=== PATIENT | male | born 1940 | race Caucasian/White ===

== ENCOUNTER → 2017-01-16 | Outpatient (CLI) | payer OTHER ==
--- NOTE | 2017-01-16 10:45 | DIAGNOSTIC IMAGING REPORT ---
CHEST 2 VIEWS ROUTINE CLINICAL HISTORY: COUGH COMPARISON STUDY: No previous studies for comparison. FINDINGS: There are postsurgical changes of a midline sternotomy. There is aortic tortuosity. There is no focal pulmonary consolidation. There is no failure. There are no pleural effusions. Linear opacities at both lung bases, likely represent scar/atelectatic change.[ IMPRESSION: No active disease in the chest. Electronically signed by: Hal Salas M.D. 01/16/2017 10:44 AM Dictated Date/Time: 01/16/2017 10:44 AM
== END | disposition home or self-care (01) ==
LOC: C.RAD1850 10:25
PROVIDERS: ATTEND Family Medicine
DX: R05 Cough (principal)

== ENCOUNTER 2019-04-23 11:24 | Inpatient (IN) ==
[2019-04-23 12:07] LABS: Basophils # (auto) 0.03 K/uL (0-0.2); Basophils % (auto) 0.3 %; Eosinophils # (auto) 0.09 K/uL (0-0.5); Hematocrit (blood only) 49.1 % (42-52); Hemoglobin 16.2 g/dL (14.0-18.0); Immature Granulocytes # (auto) 0.04 K/uL (0.00-0.02); Immature Granulocytes % (auto) 0.4 %; Lymphocytes # (auto) 0.89 K/uL (1.2-3.4); Lymphocytes % (auto) 9.5 %; Mean Corpuscular Hemoglobin 29.5 pg (25-34); Mean Corpuscular Volume 89.4 fL (80-100); Mean Platelet Volume 9.5 fL (7.4-10.4); Monocytes # (auto) 0.76 K/uL (0.11-0.59); Monocytes % (auto) 8.1 %; Neutrophils % (auto) 80.7 %; Platelet Count 146 K/uL (130-400); RDW Coefficient of Variation 15.5 % (11.5-14.5); RDW Standard Deviation 51.1 fL (36.4-46.3); Red Blood Count 5.49 M/uL (4.7-6.1); White Blood Count 9.41 K/uL (4.8-10.8)
[2019-04-23 12:25] LABS: Alanine Aminotransferase 25 U/L (12-78); Albumin Level 3.9 gm/dl (3.4-5.0); Aspartate Aminotransferase 13 U/L (15-37); BUN Creatinine Ratio 17.8 (10-20); Blood Urea Nitrogen 25 mg/dl (7-18); Calcium 8.6 mg/dl (8.5-10.1); Carbon Dioxide 28 mmol/L (21-32); Chloride 110 mmol/L (98-107); Creatinine Clr Calc Pharmacy 47.3 ml/min; Est GFR (African American) 55.5; Est GFR (Non-African American) 47.9; Glucose 109 mg/dl (70-99); Potassium 4.5 mmol/L (3.5-5.1); Sodium 143 mmol/L (136-145)
[2019-04-23 12:35] LABS: Albumin Globulin Ratio 1.3 (0.9-2); Alkaline Phosphatase 71 U/L (45-117); Bilirubin,Total 1.1 mg/dl (0.2-1); Total Protein 6.9 gm/dl (6.4-8.2); Troponin I < 0.015 ng/ml (0-0.045)
[2019-04-23] MEDS ORDERED: SODIUM CHLORIDE 0.9% 1000ML 500 ML IV ONE (12:35)
--- NOTE | 2019-04-23 12:35 | XRay Report ---
XR chest 1V portable CLINICAL HISTORY: weakness COMPARISON STUDY: 01/16/2017 FINDINGS: There are postsurgical changes of midline sternotomy. The heart is at the upper limits of n ormal in size. There is no failure. There is no focal pulmonary consolidation. There are no pleural e ffusions. There is minor left basilar atelectatic change. A rounded opacity at the right lung base, l ikely represents a nipple shadow.[ IMPRESSION: 1. 8 mm rounded opacity at the right lung base, likely representing a nipple shadow 2. No acute findings. No evidence of failure. No evidence of focal pulmonary consolidation Electronically signed by: Hal Salas M.D. 04/23/2019 12:34 PM
--- NOTE | 2019-04-23 13:40 | Magnetic Resonance Report ---
MR brain wo con CLINICAL HISTORY: 79 years-old Male presenting with off balance, poss stroke. TECHNIQUE: Multisequence, multiplanar MR imaging of the brain was performed without the use of intrav enous contrast. IV contrast: None. COMPARISON: None. FINDINGS: Localizer images: Unremarkable. Bone marrow signal intensity within the calvarium within normal limits. Normal midline sagittal structures. Ventricles and sulci normal in size. No mass effect or midline sh ift. Date diffusion hyperintensity at the junction of the midbrain and pura with associated T2/FLAIR hyperintensity. No other restricted diffusion or hemorrhage. Periventricular and subcortical white ma tter T2/FLAIR hyperintensity, nonspecific but likely indicative of chronic small vessel ischemic [place] ge. No extra-axial fluid collection. T2 skull base flow voids preserved. Bilateral [place] lenses are abse nt. IMPRESSION: 1. Questionable evolving acute or subacute infarct or underlying lesion in the midline at the juncti on of the midbrain and pura. A short-term follow-up MR brain with intravenous contrast is recommended . 2. Chronic small vessel ischemic change. Electronically signed by: Mekhi Shankar M.D. 04/23/2019 1:38 PM
[2019-04-23] MEDS ORDERED: OPTIRAY 320 125ml IV PRN (14:14)
--- NOTE | 2019-04-23 14:34 | CT Scan Report ---
CT angio head wo/w CT DOSE: 2010.12 mGycm CLINICAL HISTORY: stroke TECHNIQUE: CT angiography of the brain was performed in a dynamic helical fashion during intravenous administration of 120 cc of Optiray 320. MIP imaging was performed. A dose lowering technique was ut ilized adhering to the principles of ALARA. COMPARISON STUDY: MRI of the brain dated 04/23/2019 FINDINGS: Noncontrast images reveal no evidence of acute or subacute infarction. There is no evidence of hydrocephalus. There is no evidence of midline shift. There is no evidence of acute hemorrhage. T here are involutional changes, most pronounced in the frontal regions. There is subtle white matter h ypodensities likely on a small vessel basis. CT angiography reveals no major intracranial branch occlusions. There is no evidence for aneurysm. Th ere is mild intracranial atherosclerotic change, most pronounced within the right posterior cerebral artery. No high-grade stenotic lesions are visualized. There are atheromatous ossifications present w ithin the cavernous and supraclinoid carotid. Cavernous sinus gas, is likely iatrogenic. There is no evidence for dural venous sinus thrombosis IMPRESSION: 1. Mild intracranial atherosclerotic disease without evidence of high-grade stenosis 2. No evidence of aneurysm 3. No evidence for dural venous sinus thrombosis Electronically signed by: Hal Salas M.D. 04/23/2019 2:33 PM
--- NOTE | 2019-04-23 14:35 | CT Scan Report ---
CT angio neck with con CLINICAL HISTORY: 79 years-old Male presenting with stroke, dizziness since 3:00 AM this morning. TECHNIQUE: Multidetector CT angiography of the neck was performed after the administration of intrave nous contrast. 3-D volumetric and/or maximum intensity projection (MIP) images were subsequently amanda nstructed for review. IV contrast: 120 mL of Optiray 320. One or more dose lowering techniques were u sed consistent with the principles of ALARA (as low as reasonably achievable), including automatic ex posure control, mA or kV adjustment to individual patient size, and/or use of iterative reconstructio n. Stenosis measurements were based on NASCET-like criteria (distal lumen diameter as the denominator for stenosis measurement). COMPARISON: None. CT DOSE (mGy.cm): The estimated cumulative dose is 2009.. 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 Aortic arch: Atherosclerosis of the three-vessel aortic arch with patent origins of the branch vessel s. Innominate artery: Patent. Right subclavian artery: Patent. Right common carotid artery: Patent. Right internal and external carotid arteries: Right carotid bifurcation patent. Right internal and ex ternal carotid arteries widely patent. Left common carotid artery: Patent. Left internal and external carotid arteries: Left carotid bifurcation patent. Left internal and exter nal carotid arteries widely patent. Left subclavian artery: Patent. Vertebral arteries: Codominant vertebral arteries. Origins and courses of the bilateral vertebral art eries patent. Other: Atherosclerosis of the cavernous segments of the internal carotid arteries. Soft tissues of th e neck normal allowing for the phase of contrast. Degenerative changes of the cervical spine. Median sternotomy wires noted. Lung apices clear. IMPRESSION: 1. No evidence of dissection, focal vessel occlusion, or significant stenosis of the cervical arteri es. Electronically signed by: Mekhi Shankar M.D. 04/23/2019 2:34 PM
--- NOTE | 2019-04-23 14:50 | Emergency Department Note ---
Entered by Idalmis Villeda acting as a scribe for César Judd MD History of Present Illness General Chief complaint: Dizziness Stated complaint: DIZZINESS Time Seen by Provider: 04/23/19 12:21 Source: patient History of Present Illness Provider complaint: dizziness Onset (ago): hour(s) 8 Pain Consistency: + other (episode) Maximum Pain Intensity: 0 Quality: + other (dizziness) Relieved By: + rest Exacerbated By: + movement Associated symptoms: + denies other symptoms (pain) and + other (bilateral leg weakness, continual symptoms hours later); no nausea/vomiting The patient is a 79 year old male who presents to the ED with complaints of an episode of dizziness that started 8 hours ago. The patient states that he went to [facility] prior to arrival and they referred him to the ED. The patient states that he woke up this morning at 0300 to use the bathroom which is when he first noticed dizziness and bilateral leg weakness. The patient states that he went back to bed after this occurrence and woke up again later in the morning with the same symptoms. The patient denies pain, nausea and vomiting. The patient notes that his symptoms are exacerbated by movement of his head and relieved with rest. Home Medications Home Medications Medication Instructions Recorded Confirmed Type aspirin 81 mg PO QPM 08/28/18 04/23/19 History atenolol 25 mg PO QAM 08/28/18 04/23/19 History atorvastatin 40 mg PO PM 08/28/18 04/23/19 History folic acid 1 mg PO QAM 08/28/18 04/23/19 History losartan 25 mg PO QAM 08/28/18 04/23/19 History Allergies Allergy/AdvReac Type Severity Reaction Status Date / Time No Known Allergies Allergy Verified 09/17/18 07:39 Past Med/Surg History Medical History Bifascicular block CHRONIC CAD (coronary artery disease) CABG X 3 (1997): SVG-RCA, RADIAL GRAFT-OM2, BRIGGS-LAD Hearing deficit Hyperlipidemia Hypertension Osteoarthritis Polycythemia vera PHLEBOTOMY EVERY 4 WEEKS; DR PHILLIPS (HEMATOLOGY) MONITORING Surgical History History of appendectomy History of bowel resection R/T POLYPS History of cardiac cath 2008=NO STENTS History of cataract surgery History of cholecystectomy History of colonoscopy History of coronary artery bypass graft CABG X 3 (1997) History of esophagogastroduodenoscopy (EGD) History of herniorrhaphy Social History Preferred Language: Estonian Communication Ability: Effective 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 and A total of 10 systems reviewed and were otherwise negative Physical Exam Vital Signs Vital Signs - 24 hr 04/23/19 11:26 04/23/19 12:04 04/23/19 13:55 Temperature 36.4 C L Temperature Source Oral Sepsis Recent Fever Within 48 Hours No Sepsis Action Taken by Nursing No Action Required Pulse Rate 57 L Pulse Rate [Apical] 51 L 52 L Pulse Rhythm Regular Pulse Rhythm [Apical] Regular Pulse Strength Normal Pulse Strength [Apical] Respiratory Rate 20 18 18 Respiratory Effort / Characteristics Non-Labored Spontaneous Non-Labored Spontaneous Respiratory Depth Normal Normal Respiratory Pattern Regular Regular Blood Pressure 176/101 H Blood Pressure [Right Arm] 146/99 H 169/95 H Blood Pressure Mean 126 Blood Pressure Mean [Right Arm] 114 119 Blood Pressure Position Sitting Blood Pressure Position [Right Arm] Pulse Oximetry 94 96 94 Oxygen Delivery Method Room Air Room Air Room Air 04/23/19 16:00 Temperature Temperature Source Sepsis Recent Fever Within 48 Hours Sepsis Action Taken by Nursing Pulse Rate Pulse Rate [Apical] 52 L Pulse Rhythm Pulse Rhythm [Apical] Regular Pulse Strength Pulse Strength [Apical] Normal Respiratory Rate 18 Respiratory Effort / Characteristics Non-Labored Spontaneous Respiratory Depth Normal Respiratory Pattern Regular Blood Pressure Blood Pressure [Right Arm] 169/84 H Blood Pressure Mean Blood Pressure Mean [Right Arm] 112 Blood Pressure Position Blood Pressure Position [Right Arm] Sitting Pulse Oximetry 96 Oxygen Delivery Method Room Air GENERAL: Patient is in no acute distress. HEENT: No nystagmus. No acute trauma, normocephalic atraumatic, mucous membranes moist, no nasal congestion, no scleral icterus. NECK: No stridor, no adenopathy, no meningismus, trachea is midline. LUNGS: Clear to auscultation bilaterally, no wheeze, no rhonchi, breath sounds equal. HEART: Without murmurs gallops or rubs, regular rate and rhythm. ABDOMEN: Soft, nontender, bowel sounds positive, no hernias, no peritonitis. EXTREMITIES: No cyanosis or edema, full range of motion of all the joints without pain or difficulty, no signs for acute trauma. NEUROLOGIC: No cerebellar deficit, no pronator drift, no speech slur, no facial droop. Oriented x 3, no acute motor or sensory deficits, no focal weakness. SKIN: No rash, no jaundice, no diaphoresis. Course 1226: Past medical records reviewed. The patient was evaluated in room B6. A complete history and physical exam was performed. 1353: I discussed the patient's case with Dr. Jony Peters. He suggests that we get a CTA of the patient's head and neck. 1356: I updated the patient on the plan and he verbally agrees and understands. 1400: I discussed the patient's case with Dr. Barahona [facility], Hospitalist. She will evaluate the patient for further management. Consultations Consultation #1: I discussed the patient's case with Dr. Jony Peters. He suggests that we get a CTA of the patient's head and neck. Time: 13:53 Consultation #2: I discussed the patient's case with Dr. Barahona [facility], Hospitalist. She will evaluate the patient for further management. Time: 14:00 Administered Medications Discontinued Medications Sodium Chloride (Nss 1000ml) 500 mls @ 999 mls/hr IV .Q31M ONE Stop: 04/23/19 13:05 Last Infusion: 04/23/19 13:50 Dose: 0 mls/hr Documented by: [id number] Admin: 04/23/19 12:45 Dose: 999 mls/hr Documented by: [id number] Ioversol (Optiray 320 125ml) 120 ml IV ONCE PRN PRN Reason: Interaction Checking Stop: 04/27/19 14:13 Last Admin: 04/23/19 14:14 Dose: 120 ml Documented by: [id number] Medical Decision Making Differential Diagnosis Differentials include stroke, vertigo, electrolyte imbalance, anemia, dehydrating, UTI, intracranial bleeding. Medical Records Attestation: I reviewed the patient's medical records. Home Medications Current Medication List: was personally reviewed by me Laboratory Data Attestation: I reviewed the patient's lab results. Result diagrams: 04/23/19 11:56 04/23/19 11:56 Lab Results 04/23/19 04/23/19 04/23/19 Range/Units 11:56 11:56 11:56 WBC 9.41 (4.8-10.8) K/uL RBC 5.49 (4.7-6.1) M/uL Hgb 16.2 (14.0-18.0) g/dL Hct 49.1 (42-52) % MCV 89.4 (80-100) fL MCH 29.5 (25-34) pg MCHC 33.0 (32-36) g/dL RDW Std Deviation 51.1 H (36.4-46.3) fL RDW Coeff of Jeff 15.5 H (11.5-14.5) % Plt Count 146 (130-400) K/uL MPV 9.5 (7.4-10.4) fL Immature Gran % (Auto) 0.4 % Neut % (Auto) 80.7 % Lymph % (Auto) 9.5 % Dickens % (Auto) 8.1 % Eos % (Auto) 1.0 % Baso % (Auto) 0.3 % Immature Gran # (Auto) 0.04 H (0.00-0.02) K/uL Neut # (Auto) 7.60 H (1.4-6.5) K/uL Lymph # (Auto) 0.89 L (1.2-3.4) K/uL Dickens # (Auto) 0.76 H (0.11-0.59) K/uL Eos # (Auto) 0.09 (0-0.5) K/uL Baso # (Auto) 0.03 (0-0.2) K/uL Sodium 143 (136-145) mmol/L Potassium 4.5 (3.5-5.1) mmol/L Chloride 110 H (98-107) mmol/L Carbon Dioxide 28 (21-32) mmol/L Anion Gap 5.0 (3-11) BUN 25 H (7-18) mg/dl Creatinine 1.39 (0.6-1.4) mg/dl Est Cr Clr Drug Dosing 47.3 ml/min Est GFR ( Amer) 55.5 Est GFR (Non-Af Amer) 47.9 BUN/Creatinine Ratio 17.8 (10-20) Glucose 109 H (70-99) mg/dl Calcium 8.6 (8.5-10.1) mg/dl Magnesium 2.3 (1.8-2.4) mg/dl Total Bilirubin 1.1 H (0.2-1) mg/dl AST 13 L (15-37) U/L ALT 25 (12-78) U/L Alkaline Phosphatase 71 (45-117) U/L Troponin I < 0.015 (0-0.045) ng/ml Total Protein 6.9 (6.4-8.2) gm/dl Albumin 3.9 (3.4-5.0) gm/dl Globulin 3.0 (2.5-4.0) gm/dl Albumin/Globulin Ratio 1.3 (0.9-2) TSH 2.170 (0.300-4.500) uIu/ml Imaging Data Radiologist's Impression: Radiology results as stated below per my review and the radiologist's interpretation: XR chest 1V portable CLINICAL HISTORY: weakness COMPARISON STUDY: 01/16/2017 FINDINGS: There are postsurgical changes of midline sternotomy. The heart is at the upper limits of normal in size. There is no failure. There is no focal pulmonary consolidation. There are no pleural effusions. There is minor left basilar atelectatic change. A rounded opacity at the right lung base, likely represents a nipple shadow.[ IMPRESSION: 1. 8 mm rounded opacity at the right lung base, likely representing a nipple shadow 2. No acute findings. No evidence of failure. No evidence of focal pulmonary consolidation Electronically signed by: Hal Salas M.D. 04/23/2019 12:34 PM MR brain wo con CLINICAL HISTORY: 79 years-old Male presenting with off balance, poss stroke. TECHNIQUE: Multisequence, multiplanar MR imaging of the brain was performed without the use of intravenous contrast. IV contrast: None. COMPARISON: None. FINDINGS: Localizer images: Unremarkable. Bone marrow signal intensity within the calvarium within normal limits. Normal midline sagittal structures. Ventricles and sulci normal in size. No mass effect or midline shift. Date diffusion hyperintensity at the junction of the midbrain and pura with associated T2/FLAIR hyperintensity. No other restricted diffusion or hemorrhage. Periventricular and subcortical white matter T2/FLAIR hyperintensity, nonspecific but likely indicative of chronic small vessel ischemic change. No extra-axial fluid collection. T2 skull base flow voids preserved. Bilateral [place] lenses are absent. IMPRESSION: 1. Questionable evolving acute or subacute infarct or underlying lesion in the midline at the junction of the midbrain and pura. A short-term follow-up MR brain with intravenous contrast is recommended. 2. Chronic small vessel ischemic change. Electronically signed by: Mekhi Shankar M.D. 04/23/2019 1:[address] angio head wo/w CT DOSE: 2010.12 mGycm CLINICAL HISTORY: stroke TECHNIQUE: CT angiography of the brain was performed in a dynamic helical fashion during intravenous administration of 120 cc of Optiray 320. MIP imaging was performed. A dose lowering technique was utilized adhering to the principles of ALARA. COMPARISON STUDY: MRI of the brain dated 04/23/2019 FINDINGS: Noncontrast images reveal no evidence of acute or subacute infarction. There is no evidence of hydrocephalus. There is no evidence of midline shift. There is no evidence of acute hemorrhage. There are involutional changes, most pronounced in the frontal regions. There is subtle white matter hypodensities likely on a small vessel basis. CT angiography reveals no major intracranial branch occlusions. There is no evidence for aneurysm. There is mild intracranial atherosclerotic change, most pronounced within the right posterior cerebral artery. No high-grade stenotic lesions are visualized. There are atheromatous ossifications present within the cavernous and supraclinoid carotid. Cavernous sinus gas, is likely iatrogenic. There is no evidence for dural venous sinus thrombosis IMPRESSION: 1. Mild intracranial atherosclerotic disease without evidence of high-grade stenosis 2. No evidence of aneurysm 3. No evidence for dural venous sinus thrombosis Electronically signed by: Hal Salas M.D. 04/23/2019 2:[address] angio neck with con CLINICAL HISTORY: 79 years-old Male presenting with stroke, dizziness since 3:00 AM this morning. TECHNIQUE: Multidetector CT angiography of the neck was performed after the administration of intravenous contrast. 3-D volumetric and/or maximum intensity projection (MIP) images were subsequently reconstructed for review. IV contrast: 120 mL of Optiray 320. One or more dose lowering techniques were used consistent with the principles of ALARA (as low as reasonably achievable), including automatic exposure control, mA or kV adjustment to individual patient size, and/or use of iterative reconstruction. Stenosis measurements were based on NASCET-like criteria (distal lumen diameter as the denominator for stenosis measurement). COMPARISON: None. CT DOSE (mGy.cm): The estimated cumulative dose is 2009.12. 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 Aortic arch: Atherosclerosis of the three-vessel aortic arch with patent origins of the branch vessels. Innominate artery: Patent. Right subclavian artery: Patent. Right common carotid artery: Patent. Right internal and external carotid arteries: Right carotid bifurcation patent. Right internal and external carotid arteries widely patent. Left common carotid artery: Patent. Left internal and external carotid arteries: Left carotid bifurcation patent. Left internal and external carotid arteries widely patent. Left subclavian artery: Patent. Vertebral arteries: Codominant vertebral arteries. Origins and courses of the bilateral vertebral arteries patent. Other: Atherosclerosis of the cavernous segments of the internal carotid arteries. Soft tissues of the neck normal allowing for the phase of contrast. Degenerative changes of the cervical spine. Median sternotomy wires noted. Lung apices clear. IMPRESSION: 1. No evidence of dissection, focal vessel occlusion, or significant stenosis of the cervical arteries. Electronically signed by: Mekhi Shankar M.D. 04/23/2019 2:34 PM ECG Data Attestation: I personally reviewed and interpreted this ECG as follows: Indication: weakness Rate (beats per minute): 55 Rhythm: sinus bradycardia Findings: + 1st degree AV block and + RBBB; no ST elevation and no acute ischemic change Comparison ECG Date: from (09/08/2018) Change: no significant change Blood Pressure Blood Pressure Findings: Elevated blood pressure Blood Pressure Disposition: further management by hospitalist [facility] There is no leukocytosis or concerning anemia. No significant electrolyte abnormality or kidney failure. No concerning liver enzyme elevation. The patient appeared to be in a euthyroid state. EKG showed a sinus bradycardia, no acute ischemia. Cardiac enzyme testing x1 was not consistent with acute cardiac injury. Chest film did not show any pneumonia or pneumothorax. Brain MRI did suggest a subacute infarct. CT angios of the head and neck did not show any thrombus or significant stenosis. On exam, the patient did not have any focal neurologic findings. No speech slur. The patient received IV saline, he has been resting comfortably. The patient presents around 9 or so hours after noticing some difficulty with h is balance. He was not a candidate for TPA. He was well out of the TPA window. His complaints were minimal and there was nothing on examination to suggest a large stroke deficit. Work-up here does suggest a small CVA as the cause for his symptoms. I did speak with neurology. I spoke with the patient and case management. Further work-up in the hospital is warranted. As the patient is already on aspirin, adjustments may need to be made with his antiplatelet therapy. A cardiology consult may be warranted. The on-call hospitalist was consulted. Impression & Plan Acute CVA (cerebrovascular accident), Dizziness, Ambulatory dysfunction Critical Care Time Critical Care Time: Yes Total Critical Care Time: 34 I have personally spent 34 minutes of critical care time in the direct management of this patient. This includes bedside care, interpretation of diagnostic studies, and testing, discussion with consultants, patient, and [facility] ly members, and other required patient management activities. This 34 minutes is in excess of all separately billable procedures. Discharge Plan Visit Data *Final* Discharge Date/Time: 04/23/19 17:21 Chief Complaint: Dizziness Stated Complaint: DIZZINESS ED Provider: César Judd Discharge Problem: Acute CVA (cerebrovascular accident), Dizziness, Ambulatory dysfunction Patient Disposition: Admitted As Inpatient Discharge Instructions Interventions: ED Discharge Assessment Last Done: 04/23/19 17:21 The scribe's documentation has been prepared under my direction and personally reviewed by me in its entirety. I confirm that the note above accurately reflects all work, treatment, procedures, and medical decision making performed by me.
--- NOTE | 2019-04-23 15:41 | History & Physical Report ---
Date of Service April 23, 2019 Assessment & Plan (1) Acute CVA (cerebrovascular accident): Admit to PCU on telemetry Vital signs every 4 hours Given aspirin 324 Continue aspirin 81 Continue atorvastatin 40 mg p.o. every morning for now and check lipid panels in the morning A1c pending, TSH, BMP Follow CBC, CMP TTE pending US to rule out DVT DVT lower extremities Cardiology consult for left anterior fascicular block. Replenish electrolytes as needed DVT prophylaxis Lovenox 40 mg SC daily Continue neurology consult/appreciate recommendations Full code Present on Admission?: Yes (2) Dizziness: Will start physical therapy and Occupational Therapy for gait and balance, weightbearing bilaterally. Present on Admission?: Yes (3) Ambulatory dysfunction: See above Present on Admission?: Yes History of Present Illness Chief Complaint: Dizziness Primary Care Provider: Rola Mosquera Patient is a 79 years old male with past medical history of hypertension who presents to the emergency department with a complaint of episode of dizziness that started approximately 3 AM last night patient said that he went to [place] prior to arrival here and he was referred to the emergency department. Patient said that he woke up this morning at 3 AM went to the bathroom at which he noticed dizziness and bilateral leg weakness. The patient states that he went went to bed after this documents and woke up again later this morning with the same symptoms. Patient denies fever chills chest pain shortness of breath abdominal pain frequency urgency melena hematemesis hematuria dysuria syncope or near syncope patient. Patient reports unsteadiness on his feet. Reviewed: Shows sinus bradycardia with first-degree AV block, right bundle branch block, left anterior fascicular block, bifascicular block septal infarct when compared to September 08, 2018 no severe significant change was found. Labs reviewed: White blood cell 9.41, hemoglobin 16.2, hematocrit 49.1, platelets 146, sodium 143, potassium 4.5, chloride 110, BUN 25, creatinine 1.39, GFR 47.9, total bili 1.1, AST 13, ALT 25, alkaline phosphatase 71, troponin 0 0.015, total protein 6.9 TSH 2.17. CTA of the head and neck: Mild intracranial atherosclerotic disease without evidence of high-grade stenosis, no evidence of aneurysm, no evidence of dural sinus thrombosis. There is mild in intracranial atherosclerotic change most pronounced within the right posterior cerebral artery. No evidence of dissection, focal vessel occlusion, significant stenosis of the cervical arteries. Brain MRI shows questionable evolving acute to subacute infarct or underlying lesion in the midline at the junction of the midbrain and pura. Chronic small vessel ischemic changes. The case was discussed with neurology Dr. Márquez and he recommended full work-up for stroke continue aspirin check lipids continue echocardiogram, would consult cardiology for further EKG left anterior fascicular block, and DVT to rule out to be from nose thrombosis. Decision was made to admit patient to PCU on telemetry. Patient is outside of the window for administration of TPA. Allergies Allergy/AdvReac Type Severity Reaction Status Date / Time No Known Allergies Allergy Verified 09/17/18 07:39 Home Medications Home Medications Medication Instructions Recorded Confirmed Type aspirin 81 mg PO QPM 08/28/18 04/23/19 History atenolol 25 mg PO QAM 08/28/18 04/23/19 History atorvastatin 40 mg PO PM 08/28/18 04/23/19 History folic acid 1 mg PO QAM 08/28/18 04/23/19 History losartan 25 mg PO QAM 08/28/18 04/23/19 History Past Med/Surg History Medical History Bifascicular block CHRONIC CAD (coronary artery disease) CABG X 3 (1997): SVG-RCA, RADIAL GRAFT-OM2, BRIGGS-LAD Hearing deficit Hyperlipidemia Hypertension Osteoarthritis Polycythemia vera PHLEBOTOMY EVERY 4 WEEKS; DR PHILLIPS (HEMATOLOGY) MONITORING Surgical History History of appendectomy History of bowel resection R/T POLYPS History of cardiac cath 2007=NO STENTS History of cataract surgery History of cholecystectomy History of colonoscopy History of coronary artery bypass graft CABG X 3 (1997) History of esophagogastroduodenoscopy (EGD) History of herniorrhaphy Social History Preferred Language: Wolof Communication Ability: Effective 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 Beliefs That Will Affect Care: None Current Living Situation: Spouse Feels Safe at Home: Yes Smoking Status: Former smoker Second Hand Exposure: No ; Hx Alcohol Use: Yes Alcohol type: beer, wine and hard liquor Hx Substance Use: No Review of Systems Review of Systems: All systems reviewed & are unremarkable except as noted in HPI & below Physical Exam Constitutional: WD/WN, vitals as above well developed Eyes: PERRL, conjunctivae normal, anicteric sclerae ENMT: external ear and nose normal, oropharynx normal Neck: trachea midline, no thyromegaly Respiratory: normal respiratory effort, lungs clear to auscultation Cardiovascular: RRR, no murmur, no edema Chest (Breasts): normal inspection/palpation of breasts Gastrointestinal (Abdomen): normal bowel sounds, soft, nontender, no hepatosplenomegaly Musculoskeletal: no cyanosis or clubbing, extremities motor strength 5/5 Skin: no rashes, warm and dry Neurologic: patellar DTR's 2+ bilat, sensation intact No cerebellar deficits, no pronator drift, no speech slurred no facial drop, oriented x3 no acute motor or sensory deficit, no focal weakness. Psychiatric: A+Ox3, euthymic affect Lymphatic: no cervical or axillary lymphadenopathy Results & Data Vital Signs (Past 12 Hours) Vital Signs Temp Pulse Pulse Resp BP BP Pulse Ox 04/23/19 13:55 52 L 18 169/95 H 94 04/23/19 12:04 51 L 18 146/99 H 96 04/23/19 11:26 36.4 C L 57 L 20 176/101 H 94 Code Status & VTE Plan Code Status Full code VTE Prophylaxis Plan VTE Prophylaxis will be ordered: Yes PG Care Time/CCT Total # of Minutes Spent Total Time Spent with Patient: Total time spent is greater than 50% in coordination of care (as documented) at patient's floor/unit and/or counseling patient:
[2019-04-23] MEDS ORDERED: ACETAMINOPHEN 325 MG TAB PO PRN (17:50)
[2019-04-23] MEDS ORDERED: SODIUM CHLORIDE 0.9% 1000ML 1,000 ML IV SCH (17:50)
[2019-04-23] MEDS ORDERED: ONDANSETRON INJ 2 MG/ML 2 ML VIAL IV PRN (17:50)
[2019-04-23] MEDS ORDERED: ZOLPIDEM TARTRATE 5 MG TAB PO PRN (17:50)
[2019-04-23] MEDS ORDERED: POLYETHYLENE (MIRALAX) 17 GM PACK PO PRN (17:50)
[2019-04-23] MEDS ORDERED: ALUMINUM/MAGNESIUM SUSP 30 ML UDC PO PRN (17:50)
[2019-04-23] MEDS ORDERED: MAGNESIUM HYDROXIDE SUSP 30 ML UDC PO PRN (17:50)
--- NOTE | 2019-04-23 20:31 | Ultrasound Report ---
ULTRASOUND BILATERAL LOWER EXTREMITY VENOUS CLINICAL HISTORY: Dyspnea. Clinical concern for deep venous thrombosis. COMPARISON STUDY: No priors. TECHNIQUE: Real-time, grayscale, and color Doppler sonography of the deep veins of the right and left lower extremity was performed from the inguinal crease to the calf. Compression and augmentation wer e utilized. FINDINGS: There is no sonographic evidence of deep venous thrombosis identified in the right or left lower extremity. The common femoral, superficial femoral, and popliteal veins are patent and normally compressible bilaterally. The greater saphenous vein and the profunda femoris vein at the junction w ith the common femoral vein are clear in both legs. There is trace chronic appearing thrombus within the left peroneal vein. The remaining visualized calf veins are patent bilaterally. IMPRESSION: 1. There is no sonographic evidence of acute deep venous thrombosis identified in the right or left l ower extremity. 2. There is trace chronic appearing thrombus within the left peroneal vein. Electronically signed by: César Baldwin M.D. 04/23/2019 8:29 PM
[2019-04-23] MEDS: HEPARIN SOD 5,000 UNIT/0.5 ML VIAL SQ SCH (20:38)
[2019-04-23] MEDS: CLOPIDOGREL BISULFATE 75 MG TAB PO SCH (20:38)
[2019-04-23] MEDS ORDERED: ASPIRIN 81 MG ECTAB PO SCH (21:00)
[2019-04-23] MEDS ORDERED: ATORVASTATIN 40 MG TAB PO SCH (21:00)
[2019-04-23] MEDS ORDERED: HydrALAZINE 10 MG TAB PO PRN (23:05)
[2019-04-24 00:41] LABS: Appearance Urine Clear (Clear); Bilirubin Urine Negative (Negative); Blood Urine Negative (Negative); Color Urine Yellow; Glucose Urine UA Negative (Negative); Ketones Urine Negative (Negative); Leukocyte Esterase Urine Negative (Negative); Nitrite Urine Negative (Negative); Protein Urine Negative (Negative); Urobilinogen Urine Negative (Negative); pH Urine 6.5 (4.5-7.5)
[2019-04-24 06:49] LABS: Basophils % (auto) 1.2 %; Eosinophils % (auto) 3.5 %; Hematocrit (blood only) 45.4 % (42-52); Hemoglobin 15.1 g/dL (14.0-18.0); Immature Granulocytes # (auto) 0.04 K/uL (0.00-0.02); Immature Granulocytes % (auto) 0.5 %; Lymphocytes # (auto) 1.18 K/uL (1.2-3.4); Lymphocytes % (auto) 13.9 %; Mean Corpuscular Hemoglobin 29.3 pg (25-34); Mean Corpuscular Hgb Conc 33.3 g/dL (32-36); Mean Corpuscular Volume 88.2 fL (80-100); Monocytes # (auto) 1.11 K/uL (0.11-0.59); Monocytes % (auto) 13.1 %; Neutrophils # (auto) 5.75 K/uL (1.4-6.5); Neutrophils % (auto) 67.8 %; Platelet Count 152 K/uL (130-400); RDW Coefficient of Variation 15.4 % (11.5-14.5); RDW Standard Deviation 50.3 fL (36.4-46.3); Red Blood Count 5.15 M/uL (4.7-6.1); White Blood Count 8.48 K/uL (4.8-10.8)
[2019-04-24 07:22] LABS: Estimated Average Glucose 126 mg/dl
[2019-04-24 07:27] LABS: Albumin Level 3.3 gm/dl (3.4-5.0); BUN Creatinine Ratio 18.2 (10-20); Calcium 8.2 mg/dl (8.5-10.1); Creatinine Clr Calc Pharmacy 53.9 ml/min; Potassium 3.8 mmol/L (3.5-5.1)
[2019-04-24 07:38] LABS: Albumin Globulin Ratio 1.2 (0.9-2); Bilirubin,Total 1.6 mg/dl (0.2-1); Globulin 2.7 gm/dl (2.5-4.0); Thyroid Stimulating Hormone 2.57 uIu/ml (0.300-4.500)
--- NOTE | 2019-04-24 08:14 | Neurology Consultation ---
Date of Consultation April 24, 2019 Assessment & Plan (1) Dizziness: (2) Hypertension: (3) Abnormal MRI: (4) Chronic cerebral ischemia: Patient had the acute onset early April 23 of dizziness/wooziness (not lightheadedness or vertigo). This is improved today but he still has some nonspecific wooziness and unsteadiness of gait with sitting up/walking. Otherwise, he has no focal neurologic deficits, meningeal signs, or encephalopathy. MRI of the brain shows a nonspecific lesion of the rather large size in the mid brain/pura junction. After review of this film and discussion with Dr. Salas, we are not convinced that this represents stroke. Therefore, I do not believe the patient had a stroke. The MRI lesion may be metabolic changes from hypertension or or may be an old nonspecific lesion. Finally, it may just be an artifact. I believe the patient's symptoms of wooziness/dizziness are related to his hypertension which is quite significant. Although his blood pressure is a little better today is still elevated. He does have risk factors for stroke including his longstanding history of hypertension and dyslipidemia as well as cigarette smoking, although he quit age 35. He has mild old small vessel ischemic disease on MRI. Recommendations: 1. I am not certain this patient needs to have Plavix added to his 81 mg aspirin tablet. He could just remain on aspirin alone. Alternatively, he could be switched to Plavix but he does not need to be on both. 2. Control blood pressure keeping mean arterial pressure around 100 3. Keep atorvastatin the same for now. Fasting lipid profile is pending. 4. Glucose is fairly well controlled. 5. Increase activity as able. 6. The patient will probably need a repeat MRI of the brain with without contrast, attention to the brainstem, in 2 or 3 days. This could be done as an outpatient. Overall, I spent a total of 70 minutes with this case including review of records, review of MRI films, direct evaluation the patient at bedside, and discussion of the case with the patient at bedside, RN at bedside, Dr. Guallpa, and Dr. Birmingham, including differential diagnosis and treatment options. History of Present Illness Reason for Consultation: Patient is a 79-year-old, who I was asked to see at the request of Dr. Warner, for neurologic consultation regarding stroke versus other. Requesting Physician: Dr. Warner Attending Physician: Dav Warner MD History of Present Illness This patient has a history of coronary artery disease status post 3 vessel bypass graft procedure in 1997. Since that time, he has been treated for high blood pressure and dyslipidemia. He believes that his blood pressure has been very well controlled recently. He has never had a history of stroke and does not have diabetes. He quit cigarette smoking at age 35. Patient has been on 81 mg aspirin tablet daily as well for many years. On April 22 patient had a normal day feeling fine. He went to bed in the evening as usual without illness or issues. Patient woke at 0300 on April 23 to go to the bathroom (as usual). When he sat up and stood up he felt woozy. He call this a dizziness but did not have vertigo. He did not have lightheadedness like he was going to faint. He did not fall but he did have a little trouble ambulating. He denied headache, confusion, speech problems, weakness in the legs, numbness or tingling in the legs, incontinence, spine pain or other issues. After going to the bathroom he went back to bed. He woke next at 0600 to go to the bathroom again. He had the same exact woozy feelings as before and went back to bed. He finally awoke around [id number] with the same symptoms. He got up, had some juice, got dressed, and they went to [facility] because he could not get a hold of his primary care physician. He arrived there around 1000 and they sent him to the emergency room after evaluation. Patient arrived at the emergency room at 1126 on April 23 with a blood pressure of 176/101, pulse 57 and regular, respiratory rate 20 and regular, temperature 36.4, and O2 saturation 94%. His neurologic examination was described as normal with no focal neurologic findings. He had no confusion. CBC was unremarkable. Chem profile was unremarkable although the glucose was 109. TSH was normal at 2.1 and urinalysis was unremarkable. Chest x-ray was unremarkable and ultrasound of the legs showed no DVT. CT angiography of the head and neck showed some plaque but no significant stenoses or other vessel anomalies. MRI of the brain showed an unusual shadow on diffusion imaging and on FLAIR at the pura midbrain junction of uncertain significance. He also has some mild nonspecific old small vessel ischemic disease of the white matter diffusely. There is mild atrophy in general. I reviewed these films and discussed the case with Dr. Salas and we agree that this is likely not a real stroke and is a shadow of uncertain significance, possibly metabolic from blood pressure versus other. This morning, the patient feels improved with less wooziness with sitting and standing and he has no new symptoms. Blood pressure this morning is 166/89. Hemoglobin A1c was 6.0. Allergies Allergy/AdvReac Type Severity Reaction Status Date / Time No Known Allergies Allergy Verified 09/17/18 07:39 Home Medications Home Medications Medication Instructions Recorded Confirmed Type aspirin 81 mg PO QPM 08/28/18 04/23/19 History atenolol 25 mg PO QAM 08/28/18 04/23/19 History atorvastatin 40 mg PO PM 08/28/18 04/23/19 History folic acid 1 mg PO QAM 08/28/18 04/23/19 History losartan 25 mg PO QAM 08/28/18 04/23/19 History Patient History Medical History Bifascicular block CHRONIC CAD (coronary artery disease) CABG X 3 (1997): SVG-RCA, RADIAL GRAFT-OM2, BRIGGS-LAD Hearing deficit Hyperlipidemia Hypertension Osteoarthritis Polycythemia vera PHLEBOTOMY EVERY 4 WEEKS; DR PHILLIPS (HEMATOLOGY) MONITORING Surgical History History of appendectomy History of bowel resection R/T POLYPS History of cardiac cath 2007=NO STENTS History of cataract surgery History of cholecystectomy History of colonoscopy History of coronary artery bypass graft CABG X 3 (1997) History of esophagogastroduodenoscopy (EGD) History of herniorrhaphy Family History Mother , Mother age 61 of lung cancer. 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 Hx Substance Use: No Review of Systems Constitutional: + fatigue; no fever and no weakness Eyes: no diplopia, no eye pain and no worsening vision Ear, Nose, Mouth, Throat: + dizziness; no ear pain, no tinnitus, no hearing loss, no snoring, no hoarseness and no dysphagia Respiratory: no cough and no dyspnea Cardiovascular: no chest pain, no palpitations and no lightheadedness Gastrointestinal: no abdominal pain, no nausea and no vomiting Genitourinary: no dysuria and no urinary incontinence Musculoskeletal: no back pain, no neck pain, no radicular pain, no joint pain and no myalgia Integumentary: no rash and no lesions Neurologic: + unsteadiness and + dizziness; no gait abnormality, no localized weakness, no generalized weakness, no tingling, no numbness, no tremor(s), no abnormal movements, no headache(s), no abnormal speech, no confusion and no memory loss Psychiatric: no depression, no irritability, no anxiety, no difficulty concentrating, no confusion and no hallucinations Endocrine: + fatigue; no flushing Hematologic / Lymphatic: no easy bleeding and no easy bruising Allergy / Immunological: no urticaria and no problem reported Results & Data Vital Signs (Past 12 Hours) Vital Signs Temp Pulse Resp BP Pulse Ox 04/24/19 07:07 36.4 C L 63 19 166/89 H 91 04/24/19 03:32 36.7 C 62 19 144/87 H 91 04/23/19 23:50 61 19 152/90 H 92 04/23/19 20:26 36.9 C 63 20 160/100 H 92 Diagnostic Findings MR brain wo con CLINICAL HISTORY: 79 years-old Male presenting with off balance, poss stroke. TECHNIQUE: Multisequence, multiplanar MR imaging of the brain was performed without the use of intravenous contrast. IV contrast: None. COMPARISON: None. FINDINGS: Localizer images: Unremarkable. Bone marrow signal intensity within the calvarium within normal limits. Normal midline sagittal structures. Ventricles and sulci normal in size. No mass effect or midline shift. Date diffusion hyperintensity at the junction of the midbrain and pura with associated T2/FLAIR hyperintensity. No other restricted diffusion or hemorrhage. Periventricular and subcortical white matter T2/FLAIR hyperintensity, nonspecific but likely indicative of chronic small vessel ischemic change. No extra-axial fluid collection. T2 skull base flow voids preserved. Bilateral eek lenses are absent. IMPRESSION: 1. Questionable evolving acute or subacute infarct or underlying lesion in the midline at the junction of the midbrain and pura. A short-term follow-up MR brain with intravenous contrast is recommended. 2. Chronic small vessel ischemic change. Electronically signed by: Mekhi Shankar M.D. 04/23/2019 1:38 PM PG Care Time/CCT Total # of Minutes Spent Total Time Spent with Patient: 70 min Total time spent is greater than 50% in coordination of care (as documented) at patient's floor/unit and/or counseling patient:
[2019-04-24] MEDS: CLOPIDOGREL BISULFATE 75 MG TAB PO SCH (08:34)
[2019-04-24] MEDS: HEPARIN SOD 5,000 UNIT/0.5 ML VIAL SQ SCH (08:35)
[2019-04-24] MEDS ORDERED: FOLIC ACID 1 MG TAB PO SCH (09:00)
[2019-04-24] MEDS ORDERED: LOSARTAN POTASSIUM 25 MG TAB PO SCH (09:00)
[2019-04-24] MEDS ORDERED: LOSARTAN POTASSIUM 50 MG TAB PO SCH (09:00)
[2019-04-24] MEDS ORDERED: ATENOLOL 25 MG TABLET PO SCH (09:00)
--- NOTE | 2019-04-24 16:46 | Discharge Summary ---
Date of Service April 24, 2019 Admission HPI Per Admitting Provider Patient is a 79 years old male with past medical history of hypertension who presents to the emergency department with a complaint of episode of dizziness that started approximately 3 AM last night patient said that [facility] and he was referred to the emergency department. Patient said that he woke up this morning at 3 AM went to the bathroom at which he noticed dizziness and bilateral leg weakness. The patient states that he went went to bed after this documents and woke up again later this morning with the same symptoms. Patient denies fever chills chest pain shortness of breath abdominal pain frequency urgency melena hematemesis hematuria dysuria syncope or near syncope patient. Patient reports unsteadiness on his feet. Reviewed: Shows sinus bradycardia with first-degree AV block, right bundle branch block, left anterior fascicular block, bifascicular block septal infarct when compared to September 08, 2018 no severe significant change was found. Labs reviewed: White blood cell 9.41, hemoglobin 16.2, hematocrit 49.1, platelets 146, sodium 143, potassium 4.5, chloride 110, BUN 25, creatinine 1.39, GFR 47.9, total bili 1.1, AST 13, ALT 25, alkaline phosphatase 71, troponin 0 0.015, total protein 6.9 TSH 2.17. CTA of the head and neck: Mild intracranial atherosclerotic disease without evidence of high-grade stenosis, no evidence of aneurysm, no evidence of dural sinus thrombosis. There is mild in intracranial atherosclerotic change most pronounced within the right posterior cerebral artery. No evidence of dissection, focal vessel occlusion, significant stenosis of the cervical arteries. Brain MRI shows questionable evolving acute to subacute infarct or underlying lesion in the midline at the junction of the midbrain and pura. Chronic small vessel ischemic changes. The case was discussed with neurology Dr. Márquez and he recommended full work-up for stroke continue aspirin check lipids continue echocardiogram, would consult cardiology for further EKG left anterior fascicular block, and DVT to rule out to be from nose thrombosis. Decision was made to admit patient to PCU on telemetry. Patient is outside of the window for administration of TPA. Principal Diagnosis BPPV & mild orthostatic hypotension Discharge Exam Constitutional WD/WN, vitals as above Eyes EOM intact bilaterally; no conjunctival abnormality ENMT external ear and nose normal, oropharynx normal Neck trachea midline, no thyromegaly normal visual inspection Respiratory normal respiratory effort, lungs clear to auscultation no respiratory distress Cardiovascular RRR, no murmur, no edema Gastrointestinal (Abdomen) Inspection/Auscultation: abdomen normal to inspection; abdomen not distended Musculoskeletal no cyanosis or clubbing, extremities motor strength 5/5 Skin no rashes, warm and dry Neurologic moves all extremities and awake Psychiatric Orientation: alert, oriented to person and cooperative Discharge Data Allergies Allergy/AdvReac Type Severity Reaction Status Date / Time No Known Allergies Allergy Verified 09/17/18 07:39 Consultations 04/23/19 13:58 ED Decision to Admit Stat 04/23/19 17:50 Consult Cardiology Routine Consult Case Management - Discharge Planning Stat Consult Neurology Routine Ordered Studies 04/23/19 12:35 MR brain wo con Stat 04/23/19 13:51 CT angio head wo/w Stat CT angio neck with con Stat 04/23/19 17:50 US venous doppler LE BI Stat Hospital Course (1) Dizziness: Thought to be due to hypertension, and possibly BPPV and mild orthostatic hypotension. - Given exercises for BPPV - Discussed how to prevent/help orthostatic hypotension - Cleared by OT for discharge home (2) Acute CVA (cerebrovascular accident): Note, this was thought to not be a stroke after all. MRI brain on 04/23 was thought to be due to "shadowing" per neurology. - Follow up with outpatient MRI with PCP in 2-3 days. (3) Ambulatory dysfunction: See above Total Time Total Time Spent Total Time Spent (In Minutes): 35 Total Time Includes: Examination of the Patient and Communication With Other Providers Discharge Plan Discharge Items Patient Disposition: Home - Self-Care Reason For Visit: Dizziness Discharge Diagnosis: Benign vertigo and possibly positional blood pressure changes Discharge Goals: Decrease discomfort and Diagnostic testing Activity: Resume your previous activity Non-emergency contact: Primary Care Provider Call non-emergency contact if: your symptoms worsen Follow-up/Referrals: Rola Mosquera [Primary Care Provider] - Diet: Heart Healthy Addtl Provider Instructions: 1) Orthostatic hypotension (positional blood pressure changes) - Take time with your changes in position. When you go from sitting to standing, please touch or hold onto a nearby object until the dizziness clears. If it doesn't clear in 5- 10 seconds, sit back down and drink some water or other beverage. If you keep having trouble with this, please discuss with your PCP. 2) Benign vertigo - This is caused by stones in your inner ears. Do the maneuver that we discussed. If one side makes you more dizzy than the other, try the exercises toward that side. Prescriptions: New losartan 50 mg tablet 50 mg PO DAILY Qty: 30 RF: 0 Continued atorvastatin 40 mg Tablet 40 mg PO PM RF: 0 atenolol 25 mg Tablet 25 mg PO QAM RF: 0 aspirin 81 mg Tablet,Delayed Release (Dr/Ec) 81 mg PO QPM RF: 0 folic acid 1 mg Tablet 1 mg PO QAM RF: 0 Stand-Alone Forms: [facility] Discharge Orders: Discharge Order (Routine); Ordered 04/24/19 Ordered By: Sanjiv Birmingham Admission Data Admit Date/Time: 04/23/19 16:18 Attending Provider: Sanjiv Birmingham Admit Provider: Dav Warner Primary Care Provider: Rola Mosquera Other Providers: Hugh Rutledge ; Kuldeep Márquez ; Sanjiv Birmingham Service: Telemetry Other Interventions: Discharge Summary Assessment (RN) Last Done: 04/24/19 10:23 DC Date/Time DO NOT enter until pt leaves facility: 04/24/19 10:50
== END 2019-04-24 10:50 | disposition home or self-care (01) | DRG 312 ==
LOC: ED 11:24 → SUATTDRO 16:18 → 2E 16:18